=== PATIENT | male | born 1980 | race Caucasian/White ===

== ENCOUNTER 2017-01-12 23:17 | Emergency (ER) | payer SELFPAY ==
[~2017-01-12] VITALS: Ht 182.9 cm; Wt 81.6 kg
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
[2017-01-13] MEDS ORDERED: IBUP-1007 PO (00:20)
[2017-01-13] MEDS ORDERED: CYCL10TA2 PO (00:20)
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
[2017-01-13 00:26] VITALS: BP 140/70
== END 2017-01-13 00:30 | disposition home or self-care (01) ==
LOC: ER 23:17
DX: S06.0X9A Concussion with loss of consciousness of unspecified duration, initial encounter (principal); S40.212A Abrasion of left shoulder, initial encounter; S00.81XA Abrasion of other part of head, initial encounter; M79.605 Pain in left leg; M79.604 Pain in right leg; M54.5 Low back pain; I10 Essential (primary) hypertension; E11.9 Type 2 diabetes mellitus without complications; F17.200 Nicotine dependence, unspecified, uncomplicated; V49.50XA Passenger injured in collision with unspecified motor vehicles in traffic accident, initial encounter; Y93.89 Activity, other specified; Y92.410 Unspecified street and highway as the place of occurrence of the external cause; Y99.8 Other external cause status
CPT/HCPCS: 70450; 72125; 99284-25